=== PATIENT | male | born 1950 | race Caucasian/White ===

== ENCOUNTER 2017-01-11 06:27 | Inpatient (IN) | payer MEDICARE ==
[2017-01-04 09:21] VITALS: BMI 30.9
[2017-01-11] MEDS ORDERED: ceFAZolin IV 1 gm in Dextrose 0 GM/0 ML BAG IVPB ONE (07:40)
[2017-01-11] MEDS ORDERED: Phenylephrine 10 mg/ml Inj ONE (07:48)
[2017-01-11] MEDS ORDERED: ePHEDrine 50 mg/ml Inj ONE (07:48)
[2017-01-11] MEDS ORDERED: Propofol 10 mg/ml Inj (20 ML) ONE (07:48)
[2017-01-11] MEDS ORDERED: Rocuronium 10 mg/ml (5 ml) ONE (07:48)
[2017-01-11] MEDS ORDERED: Lidocaine Hydrochloride 10 ML INJ ONE (07:48)
[2017-01-11] MEDS ORDERED: Midazolam 2 MG/2 ML VIAL ONE (07:48)
[2017-01-11] MEDS ORDERED: ceFAZolin IV 2 gm in Dextrose 2 GM/50 ML BAG IVPB ONE (07:49)
[2017-01-11] MEDS ORDERED: Lactated Ringer's 1,000 ML IV ONE ×4 (08:00→14:00)
[2017-01-11] MEDS: Bupivacaine HCl 0.25% PF (10 ml) Inj ONE ×2 (08:20→08:27)
--- NOTE | 2017-01-11 09:53 | PCM.SURG1 ---
Surgeon's Initial Post Op Note - Surgeon's Notes Surgeon: Laura Ralph Real Estate Agent: Solange Alcocer Type of Anesthesia: General Endo Pre-Operative Diagnosis: Prostate cancer Operative Findings: same Post-Operative Diagnosis: same Operation Performed: Robot assisted Laparoscopic prostatectomy. Lysis of adhesions. Bilat Pelvic Lymphadencetomy Specimen/Specimens Removed: Prostate. Pelvic lymph nodes Estimated Blood Loss: EBL {In ML}: 100 Blood Products Given: N/A Drains Used: Mark Mccall Post-Op Condition: Good Date of Surgery/Procedure: 01/11/17 Time of Surgery/Procedure: 09:53
[2017-01-11] MEDS ORDERED: Morphine 4 MG/ML VIAL ONE (09:58)
[2017-01-11] MEDS ORDERED: Potassium Ch 20mEq in D5-1/2NS 1,000 ML IV SCH (10:00)
[2017-01-11] MEDS: HYDROmorphone 0.5 mg/0.5 ml ISec IVP PRN ×4 (10:35→12:37)
[2017-01-11] MEDS ORDERED: Oxycodone/Acetaminophen 5/325 mg Tab PO PRN (11:24)
[2017-01-11] MEDS: cefTRIAXone IV 1 gm in Dextros 50 ML IVPB SCH (11:30)
--- NOTE | 2017-01-11 15:11 | OP ---
PROCEDURE DATE: 01/11/2017 PREOPERATIVE DIAGNOSIS: [facility] 8 extensive localized prostate cancer. POSTOPERATIVE DIAGNOSES: Extensive adhesions as well as localized prostate cancer as mentioned above. PROCEDURES PERFORMED: Extensive lysis of adhesions secondary to previous multiple surgeries, robotic-assisted radical prostatectomy, and bilateral pelvic lymph node dissection. Modifier 22 due to taking more than half an hour extra for this case due to extensive adhesions. SURGEON: Rosa Ralph MD GREEN TIRE INSPECTOR: Reid Alcocer MD ESTIMATED BLOOD LOSS: 100 mL. PREOPERATIVE ANTIBIOTIC: Ancef. COMPLICATIONS: None. DRAINS: MALCOM and Thomas. DESCRIPTION OF PROCEDURE: The patient was taken to the OR, placed in supine position. After anesthetic and preop antibiotics were given, the patient was placed in modified lithotomy position, all the pressure points were padded, and then the patient was prepped and draped in the usual manner. Then, an incision was made above the umbilicus where the previous scar was, but before putting a port through that side, we went to the right side, the most lateral robotic port, we placed that in first and a Veress needle there to stay away from the adhesions. Then, insufflation was done and then an 8 mm robotic port was placed, and under direct vision with the camera, adhesions were seen anterior to the abdominal wall and those were taken down with sharp dissection athermally. Once those were taken down, then a space was created to place additional robotic port and the camera port and the food service assistant port. Once that was done, then the patient was placed in Trendelenburg, the robot was docked, and then additional lysis of adhesions was done with the robotic instrument and then the retroperitoneal space was entered and the bladder was dropped, and then the prostate was mobilized, and the bladder neck was identified, and then an incision was made at the anterior bladder neck. Then, cystoplasty was performed and bladder neck preservation was done, staying away from the prostate since the patient had significant cancer. Once the posterior bladder was incised, then seminal vesicle and vas were identified, they were lifted and cut. The posterior plane was created. Staying away from the capsular area, an avascular plane was created further laterally and toward the apex of the prostate and then laterally, the nerve was dropped and then pedicle was taken with clips on each side, then the apex was freed, and then anteriorly it was freed. Dorsal vein was taken, and then anterior urethra was cut, then stay suture and anastomotic stitch was placed and posterior urethra was cut. Then, prostate was brought to the side and then anastomosis was completed after checking for bleeding and there was none seen. With 0 Vicryl and finishing at 12 o'clock. Then, bilateral pelvic lymph node dissection was performed using obturator and iliac as a landmark and then, the Surgicel was placed on the fossa as well as on the neurovascular bundle area. Then, the bladder was filled and irrigated, there were no leaks seen. Then, the specimen was placed in the bag, and robot was undocked, each port was again looked directly as we exited. Then, bowel was re-checked. There was no dilation seen. After the ports were removed, the specimen was removed through the midline after making it a little larger. Then, the fascia was closed with 0 Vicryl, skin was re-approximated with staple, and drain was placed and secured. The patient was awakened and transferred to the recovery room in stable condition. Lidocaine was given at the wound site. Rosa Ralph MD
[2017-01-11] MEDS ORDERED: Sodium Chloride 0.9% 1,000 ML IV SCH (15:45)
[2017-01-11 16:12] LABS: HEMATOCRIT 38.6 % (35.0-51.0); MEAN CELL VOLUME 91.9 fL (80.0-94.0); MEAN CORPUSCULAR HEMOGLOBIN 28.9 pg (27.0-31.0); MEAN CORPUSCULAR HGB CONC 31.4 g/dL (33.0-37.0)
[2017-01-11 16:26] LABS: WHITE BLOOD COUNT 15.7 K/uL (4.8-10.8)
[2017-01-11 16:30] LABS: BLOOD UREA NITROGEN 11 mg/dL (9-20); CALCIUM 7.3 mg/dl (8.6-10.4); CARBON DIOXIDE 24 mmol/L (22-30); CHLORIDE 102 mmol/L (98-107); GFR AFRICAN-AMERICAN > 60; GLUCOSE,RANDOM 185 mg/dL (75-110); POTASSIUM 4.6 mmol/L (3.6-5.2); SODIUM 133 mmol/L (132-148)
[2017-01-11] MEDS ORDERED: Sodium Chloride 0.9% 1,000 ML IV ONE ×2 (16:30)
[2017-01-11] MEDS: Dextrose 5%/0.45% NS 1,000 ML IV SCH (19:00)
[2017-01-11 19:46] VITALS: RESP 20
[2017-01-11] MEDS: (Novolog) Insulin Aspart, Recombinant 100 u/ml 10 ml vial SC SCH (21:58)
[2017-01-12] MEDS: Dextrose 5%/0.45% NS 1,000 ML IV SCH ×5 (00:30→21:41)
--- NOTE | 2017-01-12 08:06 | PCM.URO ---
Urology Progress Note - General General: No Complaints, Tolerating Diet - Subjective Abdominal Pain: Yes (mild) Flank Pain: No Nausea: No Voiding Well: No (catheter in place) Hematuria: No Dsypnea: No Chest Pain: No Fever & Chills: No - Objective Lab Results Last 24 Hours: Laboratory Results - last 24 hr 01/11/17 01/11/17 01/11/17 07:20 12:22 16:07 WBC 15.7 H D RBC 4.20 L Hgb 12.1 D Hct 38.6 MCV 91.9 MCH 28.9 MCHC 31.4 L RDW 14.0 Plt Count 228 MPV 9.0 Sodium Potassium Chloride Carbon Dioxide Anion Gap BUN Creatinine Est GFR ( Amer) Est GFR (Non-Af Amer) POC Glucose (mg/dL) 191 H Random Glucose Calcium Blood Type O POSITIVE Antibody Screen Negative 01/11/17 01/11/17 01/12/17 16:07 21:33 06:33 WBC RBC Hgb Hct MCV MCH MCHC RDW Plt Count MPV Sodium 133 Potassium 4.6 Chloride 102 Carbon Dioxide 24 Anion Gap 13 BUN 11 Creatinine 1.1 Est GFR ( Amer) > 60 Est GFR (Non-Af Amer) > 60 POC Glucose (mg/dL) 185 H 205 H Random Glucose 185 H Calcium 7.3 L Blood Type Antibody Screen Intake & Output: Intake & Output 01/11/17 01/12/17 01/12/17 18:59 06:59 18:59 Intake Total 815 Output Total 825 665 Balance -825 150 Intake: Intake, IV Amount 575 Left Wrist 575 Oral 240 Output: Drainage 240 115 Left Abdomen 115 Urine 585 550 Urethral (Thomas) 550 Other: Voiding Method Indwelling Catheter Vital Signs: Vital Signs - 24 hr 01/11/17 01/11/17 01/11/17 10:04 10:15 10:30 Temperature 97.8 F Pulse Rate 89 82 68 Respiratory 10 L 12 15 Rate Blood Pressure 154/85 H 145/81 150/78 O2 Sat by Pulse 99 100 100 Oximetry 01/11/17 01/11/17 01/11/17 10:45 11:00 11:30 Temperature Pulse Rate 75 79 80 Respiratory 16 16 15 Rate Blood Pressure 144/79 143/82 126/83 O2 Sat by Pulse 100 100 100 Oximetry 01/11/17 01/11/17 01/11/17 11:45 12:00 12:15 Temperature Pulse Rate 82 95 H 98 H Respiratory 15 17 16 Rate Blood Pressure 121/67 107/73 109/76 O2 Sat by Pulse 100 100 100 Oximetry 01/11/17 01/11/17 01/11/17 12:30 12:45 13:00 Temperature Pulse Rate 104 H 112 H 94 H Respiratory 15 17 17 Rate Blood Pressure 106/73 96/66 L 97/67 L O2 Sat by Pulse 100 100 100 Oximetry 01/11/17 01/11/17 01/11/17 13:30 14:00 14:30 Temperature Pulse Rate 95 H 90 90 Respiratory 18 19 18 Rate Blood Pressure 95/51 L 97/65 L 99/57 L O2 Sat by Pulse 100 100 100 Oximetry 01/11/17 01/11/17 01/11/17 15:00 15:30 16:00 Temperature 98.7 F Pulse Rate 92 H 97 H 92 H Respiratory 16 11 L 18 Rate Blood Pressure 98/61 L 102/70 99/57 L O2 Sat by Pulse 100 100 100 Oximetry 01/11/17 01/11/17 01/11/17 16:30 17:00 17:30 Temperature Pulse Rate 90 84 88 Respiratory 15 15 17 Rate Blood Pressure 101/65 97/60 L 103/58 L O2 Sat by Pulse 100 100 100 Oximetry 01/11/17 01/11/17 01/11/17 18:00 19:44 23:40 Temperature 97.8 F 98.3 F 98.0 F Pulse Rate 90 89 76 Respiratory 20 20 20 Rate Blood Pressure 105/59 L 96/66 L 95/60 L O2 Sat by Pulse 100 96 98 Oximetry - Physical Exam Abdominal Exam: Soft, Non-Tender, Non-Distended Bowel Sounds: Normal Back: No CVA Tenderness Genitalia: Without Inflammation Urine Color: Clear, Yellow Extremities: Normal: Bilateral - Male Phallus: Normal - Plan Advance Diet: Yes Wound Care: Yes Catheter Care: Yes Ambulation - Out of Bed: Yes Intake & Output: Yes See Orders: Yes Additional Information: Imp: progressing well, POD#1. Discussed w pt and nursing staff - Date & Time of Note Date: 01/12/17 Time: 08:06
[2017-01-12 08:23] LABS: HEMATOCRIT 28.2 % (35.0-51.0); MEAN CELL VOLUME 90.9 fL (80.0-94.0); MEAN PLATELET VOLUME 9.4 fL (7.2-11.7); RED CELL DISTRIBUTION WIDTH 13.4 % (11.5-14.5)
[2017-01-12] MEDS: (Novolog) Insulin Aspart, Recombinant 100 u/ml 10 ml vial SC SCH ×4 (08:34→21:41)
[2017-01-12 08:45] LABS: WHITE BLOOD COUNT 7.7 K/uL (4.8-10.8)
[2017-01-12 08:48] LABS: BLOOD UREA NITROGEN 16 mg/dL (9-20); CALCIUM 6.9 mg/dl (8.6-10.4); CARBON DIOXIDE 24 mmol/L (22-30); CHLORIDE 101 mmol/L (98-107); GFR AFRICAN-AMERICAN > 60; GLUCOSE,RANDOM 169 mg/dL (75-110); POTASSIUM 3.6 mmol/L (3.6-5.2); SODIUM 132 mmol/L (132-148)
[2017-01-12] MEDS ORDERED: Enoxaparin 40 mg Syringe SC SCH (10:00)
[2017-01-12] MEDS: cefTRIAXone IV 1 gm in Dextros 50 ML IVPB SCH (10:34)
[2017-01-12] MEDS: Pantoprazole 40 mg EC Tab PO SCH (10:34)
[2017-01-12] MEDS: Oxycodone/Acetaminophen 5/325 mg Tab PO PRN (10:41)
[2017-01-12 12:42] LABS: HEMATOCRIT 29.9 % (35.0-51.0); MEAN CELL VOLUME 91.2 fL (80.0-94.0); MEAN CORPUSCULAR HEMOGLOBIN 30.2 pg (27.0-31.0); MEAN CORPUSCULAR HGB CONC 33.1 g/dL (33.0-37.0); MEAN PLATELET VOLUME 9.5 fL (7.2-11.7); RED CELL DISTRIBUTION WIDTH 13.7 % (11.5-14.5); WHITE BLOOD COUNT 8.4 K/uL (4.8-10.8)
[2017-01-12] MEDS: Simethicone 80 mg Chewtab PO PRN (19:51)
[2017-01-13] MEDS: Dextrose 5%/0.45% NS 1,000 ML IV SCH ×2 (04:30→10:23)
[2017-01-13 07:18] LABS: BLOOD UREA NITROGEN 11 mg/dL (9-20); CALCIUM 7.4 mg/dl (8.6-10.4); CARBON DIOXIDE 25 mmol/L (22-30); CHLORIDE 103 mmol/L (98-107); GFR AFRICAN-AMERICAN > 60; GLUCOSE,RANDOM 168 mg/dL (75-110); POTASSIUM 3.7 mmol/L (3.6-5.2); SODIUM 135 mmol/L (132-148)
[2017-01-13 07:40] LABS: MEAN CELL VOLUME 91.2 fL (80.0-94.0); MEAN CORPUSCULAR HEMOGLOBIN 29.8 pg (27.0-31.0); MEAN CORPUSCULAR HGB CONC 32.7 g/dL (33.0-37.0); MEAN PLATELET VOLUME 9.6 fL (7.2-11.7); RED CELL DISTRIBUTION WIDTH 13.7 % (11.5-14.5); WHITE BLOOD COUNT 9.1 K/uL (4.8-10.8)
[2017-01-13] MEDS: (Novolog) Insulin Aspart, Recombinant 100 u/ml 10 ml vial SC SCH ×3 (08:58→16:30)
--- NOTE | 2017-01-13 09:09 | CP.PCM.HP ---
History of Present Illness - History of Present Illness History of Present Illness: CC : post-op medical care HPI : 66 y/o [place] man admitted post op s/p Total prostatectomy. Pt is a known T2dm, HTN, Prostate ca,Lipid disorder. Called to manage pt from mediacal/ cardiac standpoint. Present on Admission - Present on Admission Any Indicators Present on Admission: Yes History of Uncontrolled Diabetes: Yes Review of Systems - Constitutional Constitutional: Snoring, Sleep Apnea - EENT Eyes: Blurred Vision Nose/Mouth/Throat: absent: Nasal Discharge, Neck Mass - Cardiovascular Cardiovascular: absent: Chest Pain, Dyspnea on Exertion, Pedal Edema - Respiratory Respiratory: absent: Dyspnea on Exertion - Gastrointestinal Gastrointestinal: absent: Abdominal Pain, Dysphagia - Genitourinary Genitourinary: Change in Urinary Stream, Difficulty Urinating, Urinary Incontinence - Musculoskeletal Musculoskeletal: Arthralgias. absent: Myalgias - Neurological Neurological: absent: Focal Weakness Past Patient History - Past Medical History & Family History Past Medical History?: Yes - Past Social History Smoking Status: Former Smoker - CARDIAC Hx Cardiac Disorders: Yes Hx Hypercholesterolemia: Yes Hx Hypertension: Yes - PULMONARY Hx Respiratory Disorders: Yes Hx Asthma: Yes Hx Sleep Apnea: Yes (POS SLEEP STUDY, NO C PAP) - NEUROLOGICAL Hx Neurological Disorder: No - HEENT Hx HEENT Problems: Yes Other/Comment: wear reading eyeglasses - RENAL Hx Chronic Kidney Disease: No - ENDOCRINE/METABOLIC Hx Endocrine Disorders: Yes Hx Diabetes Mellitus Type 2: Yes (10 years) - HEMATOLOGICAL/ONCOLOGICAL Hx Blood Disorders: Yes Hx Cancer: Yes (colorectal ca 2 years agolast chemo ) Hx Chemotherapy: Yes Hx Hepatitis B: Yes - INTEGUMENTARY Hx Dermatological Problems: No - MUSCULOSKELETAL/RHEUMATOLOGICAL Hx Musculoskeletal Disorders: Yes Hx Falls: No Other/Comment: left heel spur (hx heel surgery) - GASTROINTESTINAL Hx Gastrointestinal Disorders: Yes Hx Bowel Surgery: Yes (SIGMOID RESECTION/CYSTO PROSTATE BIOPSY) Hx Gastroesophageal Reflux: Yes Other/Comment: sigmoid cancer - GENITOURINARY/GYNECOLOGICAL Hx Genitourinary Disorders: Yes Hx Prostate Cancer: Yes Other/Comment: FREQUENCY/DRIBBLING - PSYCHIATRIC Hx Psychophysiologic Disorder: No Hx Substance Use: No - SURGICAL HISTORY Hx Surgeries: Yes Hx Orthopedic Surgery: Yes (LEFT HEEL SPUR) Other/Comment: colon surgery - ANESTHESIA Hx Anesthesia: Yes Hx Anesthesia Reactions: No Hx Malignant Hyperthermia: No Has any member of the family had a problem w/ anesthesia?: No Meds Allergies/Adverse Reactions: Allergies Allergy/AdvReac Type Severity Reaction Status Date / Time No Known Allergies Allergy Verified 01/04/17 09:24 Physical Exam - Constitutional Appears: Non-toxic - Head Exam Head Exam: NORMAL INSPECTION - Eye Exam Eye Exam: absent: Scleral icterus Pupil Exam: NORMAL ACCOMODATION - ENT Exam ENT Exam: Mucous Membranes Moist - Neck Exam Neck exam: Positive for: Full Rom. Negative for: Lymphadenopathy - Respiratory Exam Respiratory Exam: NORMAL BREATHING PATTERN - Cardiovascular Exam Cardiovascular Exam: REGULAR RHYTHM - GI/Abdominal Exam GI & Abdominal Exam: Tenderness. absent: Soft - Extremities Exam Extremities exam: Negative for: calf tenderness, pedal edema Results - Vital Signs Recent Vital Signs: Last Vital Signs Temp 97.9 F 01/13/17 07:25 Pulse 104 H 01/13/17 07:25 Resp 20 01/13/17 07:25 BP 120/71 01/13/17 07:25 Pulse Ox 100 01/13/17 07:25 - Labs Result Diagrams: 01/13/17 06:42 01/13/17 06:42 Labs: Laboratory Results - last 24 hr 01/12/17 01/12/17 01/12/17 12:12 12:34 17:08 WBC 8.4 RBC 3.27 L Hgb 9.9 L Hct 29.9 L MCV 91.2 MCH 30.2 MCHC 33.1 RDW 13.7 Plt Count 169 MPV 9.5 Sodium Potassium Chloride Carbon Dioxide Anion Gap BUN Creatinine Est GFR ( Amer) Est GFR (Non-Af Amer) POC Glucose (mg/dL) 202 H 174 H Random Glucose Calcium 01/12/17 01/13/17 01/13/17 21:16 06:26 06:42 WBC 9.1 RBC 2.74 L Hgb 8.2 L Hct 25.0 L MCV 91.2 MCH 29.8 MCHC 32.7 L RDW 13.7 Plt Count 144 MPV 9.6 Sodium Potassium Chloride Carbon Dioxide Anion Gap BUN Creatinine Est GFR ( Amer) Est GFR (Non-Af Amer) POC Glucose (mg/dL) 225 H 196 H Random Glucose Calcium 01/13/17 06:42 WBC RBC Hgb Hct MCV MCH MCHC RDW Plt Count MPV Sodium 135 Potassium 3.7 Chloride 103 Carbon Dioxide 25 Anion Gap 11 BUN 11 Creatinine 1.1 Est GFR ( Amer) > 60 Est GFR (Non-Af Amer) > 60 POC Glucose (mg/dL) Random Glucose 168 H Calcium 7.4 L Assessment & Plan - Assessment and Plan (Free Text) Assessment: Prostate Ca s/p Total prostatectomy T2dm HTN Plan: Control bp Control BS DVT prophylaxis
--- NOTE | 2017-01-13 09:20 | CP.PCM.PN ---
Subjective - Date & Time of Evaluation Date of Evaluation: 01/12/17 Time of Evaluation: 08:10 - Subjective Subjective: no chest pain no sob good urine output Vitals stable Objective - Vital Signs/Intake and Output Vital Signs (last 24 hours): Temp Pulse Resp BP Pulse Ox 97.9 F 104 H 20 120/71 100 01/13/17 07:25 01/13/17 07:25 01/13/17 07:25 01/13/17 07:25 01/13/17 07:25 Intake and Output: 01/13/17 01/13/17 06:59 18:59 Intake Total 2400 Output Total 3000 Balance -600 - Medications Medications: Current Medications Docusate Sodium (Colace) 100 mg PO TID [facility] Last Admin: 01/12/17 18:09 Dose: 100 mg Enoxaparin Sodium (Lovenox) 40 mg SC DAILY [facility] Last Admin: 01/12/17 10:33 Dose: 40 mg Ceftriaxone Sodium (Rocephin Iv 1 Gm Duplex) 50 mls @ 100 mls/hr IVPB DAILY [facility] Last Admin: 01/12/17 10:34 Dose: 100 mls/hr Dextrose/Sodium Chloride (Dextrose 5%/0.45% Ns 1000 Ml) 1,000 mls @ 150 mls/hr IV .Q6H40M [facility] Last Admin: 01/13/17 04:30 Dose: 150 mls/hr Insulin Aspart (Novolog) 0 unit SC ACHS [facility] PRN Reason: Protocol Last Admin: 01/13/17 08:58 Dose: 1 unit Losartan Potassium (Cozaar) 100 mg PO DAILY [facility] Last Admin: 01/12/17 10:34 Dose: 100 mg Metformin HCl (Glucophage) 500 mg PO BIDCC [facility] Last Admin: 01/13/17 08:58 Dose: 500 mg Oxycodone/Acetaminophen (Percocet 5/325 Mg Tab) 1 tab PO Q4H PRN PRN Reason: Pain, Mild (1-3) Stop: 01/14/17 11:25 Oxycodone/Acetaminophen (Percocet 5/325 Mg Tab) 2 tab PO Q4H PRN PRN Reason: Pain, moderate (4-7) Stop: 01/14/17 11:27 Last Admin: 01/12/17 10:41 Dose: 2 tab Pantoprazole Sodium (Protonix Ec Tab) 40 mg PO DAILY [facility] Last Admin: 01/12/17 10:34 Dose: 40 mg Rosuvastatin Calcium (Crestor) 10 mg PO HS [facility] Last Admin: 01/12/17 21:41 Dose: 10 mg Simethicone (Mylicon Chew Tab) 80 mg PO Q6 PRN PRN Reason: GI distress Stop: 01/15/17 19:32 Last Admin: 01/12/17 19:51 Dose: 80 mg Sitagliptin Phosphate (Januvia) 100 mg PO DAILY [facility] Last Admin: 01/12/17 10:34 Dose: 100 mg - Labs Labs: 01/13/17 06:42 01/13/17 06:42 - Constitutional Appears: Non-toxic - Head Exam Head Exam: NORMOCEPHALIC - Eye Exam Eye Exam: absent: Scleral icterus - Neck Exam Neck Exam: Full ROM - Respiratory Exam Respiratory Exam: Clear to Ausculation Bilateral - Cardiovascular Exam Cardiovascular Exam: REGULAR RHYTHM - GI/Abdominal Exam GI & Abdominal Exam: Soft. absent: Tenderness - Extremities Exam Extremities Exam: Calf Tenderness. absent: Pedal Edema - Neurological Exam Neurological Exam: Alert, Oriented x3 Assessment and Plan - Assessment and Plan (Free Text) Assessment: s/p Total prostatectomy Prostate ca T2dm HTN Lipid disorder Plan: Fluids Pain meds prn Cont home meds
--- NOTE | 2017-01-13 09:25 | CP.PCM.PN ---
Subjective - Date & Time of Evaluation Date of Evaluation: 01/12/17 Time of Evaluation: 08:25 - Subjective Subjective: improving NAD BP stable. Afebrile. Good urine output Objective - Vital Signs/Intake and Output Vital Signs (last 24 hours): Temp Pulse Resp BP Pulse Ox 97.9 F 104 H 20 120/71 100 01/13/17 07:25 01/13/17 07:25 01/13/17 07:25 01/13/17 07:25 01/13/17 07:25 Intake and Output: 01/13/17 01/13/17 06:59 18:59 Intake Total 2400 Output Total 3000 Balance -600 - Medications Medications: Current Medications Docusate Sodium (Colace) 100 mg PO TID [facility] Last Admin: 01/12/17 18:09 Dose: 100 mg Enoxaparin Sodium (Lovenox) 40 mg SC DAILY [facility] Last Admin: 01/12/17 10:33 Dose: 40 mg Ceftriaxone Sodium (Rocephin Iv 1 Gm Duplex) 50 mls @ 100 mls/hr IVPB DAILY [facility] Last Admin: 01/12/17 10:34 Dose: 100 mls/hr Dextrose/Sodium Chloride (Dextrose 5%/0.45% Ns 1000 Ml) 1,000 mls @ 150 mls/hr IV .Q6H40M [facility] Last Admin: 01/13/17 04:30 Dose: 150 mls/hr Insulin Aspart (Novolog) 0 unit SC ACHS [facility] PRN Reason: Protocol Last Admin: 01/13/17 08:58 Dose: 1 unit Losartan Potassium (Cozaar) 100 mg PO DAILY [facility] Last Admin: 01/12/17 10:34 Dose: 100 mg Metformin HCl (Glucophage) 500 mg PO BIDCC [facility] Last Admin: 01/13/17 08:58 Dose: 500 mg Oxycodone/Acetaminophen (Percocet 5/325 Mg Tab) 1 tab PO Q4H PRN PRN Reason: Pain, Mild (1-3) Stop: 01/14/17 11:25 Oxycodone/Acetaminophen (Percocet 5/325 Mg Tab) 2 tab PO Q4H PRN PRN Reason: Pain, moderate (4-7) Stop: 01/14/17 11:27 Last Admin: 01/12/17 10:41 Dose: 2 tab Pantoprazole Sodium (Protonix Ec Tab) 40 mg PO DAILY [facility] Last Admin: 01/12/17 10:34 Dose: 40 mg Rosuvastatin Calcium (Crestor) 10 mg PO HS [facility] Last Admin: 01/12/17 21:41 Dose: 10 mg Simethicone (Mylicon Chew Tab) 80 mg PO Q6 PRN PRN Reason: GI distress Stop: 01/15/17 19:32 Last Admin: 01/12/17 19:51 Dose: 80 mg Sitagliptin Phosphate (Januvia) 100 mg PO DAILY [facility] Last Admin: 01/12/17 10:34 Dose: 100 mg - Labs Labs: 01/13/17 06:42 01/13/17 06:42 - Constitutional Appears: Non-toxic - Head Exam Head Exam: NORMAL INSPECTION - Eye Exam Eye Exam: absent: Scleral icterus - ENT Exam ENT Exam: Mucous Membranes Moist - Neck Exam Neck Exam: Full ROM - Respiratory Exam Respiratory Exam: Clear to Ausculation Bilateral - Cardiovascular Exam Cardiovascular Exam: REGULAR RHYTHM - GI/Abdominal Exam GI & Abdominal Exam: Soft. absent: Tenderness - Extremities Exam Extremities Exam: absent: Calf Tenderness, Pedal Edema - Neurological Exam Neurological Exam: Alert, Oriented x3 Assessment and Plan - Assessment and Plan (Free Text) Assessment: s/p total prostatectomy HTN T2dm Lipid disorder Plan: Cont post-op care Cont meds Accucheck qid w/ coverage
--- NOTE | 2017-01-13 09:32 | CP.PCM.PN ---
Objective - Vital Signs/Intake and Output Vital Signs (last 24 hours): Temp Pulse Resp BP Pulse Ox 97.9 F 104 H 20 120/71 100 01/13/17 07:25 01/13/17 07:25 01/13/17 07:25 01/13/17 07:25 01/13/17 07:25 Intake and Output: 01/13/17 01/13/17 06:59 18:59 Intake Total 2400 Output Total 3000 Balance -600 - Medications Medications: Current Medications Docusate Sodium (Colace) 100 mg PO TID [facility] Last Admin: 01/12/17 18:09 Dose: 100 mg Enoxaparin Sodium (Lovenox) 40 mg SC DAILY [facility] Last Admin: 01/12/17 10:33 Dose: 40 mg Ceftriaxone Sodium (Rocephin Iv 1 Gm Duplex) 50 mls @ 100 mls/hr IVPB DAILY [facility] Last Admin: 01/12/17 10:34 Dose: 100 mls/hr Dextrose/Sodium Chloride (Dextrose 5%/0.45% Ns 1000 Ml) 1,000 mls @ 150 mls/hr IV .Q6H40M [facility] Last Admin: 01/13/17 04:30 Dose: 150 mls/hr Insulin Aspart (Novolog) 0 unit SC ACHS [facility] PRN Reason: Protocol Last Admin: 01/13/17 08:58 Dose: 1 unit Losartan Potassium (Cozaar) 100 mg PO DAILY [facility] Last Admin: 01/12/17 10:34 Dose: 100 mg Metformin HCl (Glucophage) 500 mg PO BIDCC [facility] Last Admin: 01/13/17 08:58 Dose: 500 mg Oxycodone/Acetaminophen (Percocet 5/325 Mg Tab) 1 tab PO Q4H PRN PRN Reason: Pain, Mild (1-3) Stop: 01/14/17 11:25 Oxycodone/Acetaminophen (Percocet 5/325 Mg Tab) 2 tab PO Q4H PRN PRN Reason: Pain, moderate (4-7) Stop: 01/14/17 11:27 Last Admin: 01/12/17 10:41 Dose: 2 tab Pantoprazole Sodium (Protonix Ec Tab) 40 mg PO DAILY [facility] Last Admin: 01/12/17 10:34 Dose: 40 mg Rosuvastatin Calcium (Crestor) 10 mg PO HS [facility] Last Admin: 01/12/17 21:41 Dose: 10 mg Simethicone (Mylicon Chew Tab) 80 mg PO Q6 PRN PRN Reason: GI distress Stop: 01/15/17 19:32 Last Admin: 01/12/17 19:51 Dose: 80 mg Sitagliptin Phosphate (Januvia) 100 mg PO DAILY [facility] Last Admin: 01/12/17 10:34 Dose: 100 mg - Labs Labs: 01/13/17 06:42 01/13/17 06:42
[2017-01-13] MEDS: Simethicone 80 mg Chewtab PO PRN (10:12)
[2017-01-13] MEDS: cefTRIAXone IV 1 gm in Dextros 50 ML IVPB SCH (10:14)
[2017-01-13] MEDS: Pantoprazole 40 mg EC Tab PO SCH (10:14)
[2017-01-13] MEDS: Oxycodone/Acetaminophen 5/325 mg Tab PO PRN (10:15)
[2017-01-13] MEDS ORDERED: Magnesium Hydroxide Susp 30 ml UD PO ONE (12:00)
[2017-01-13 17:25] VITALS: BP 118/72; PULSE 102; TEMP 98.6; O2SAT 96
--- NOTE | 2017-01-14 12:21 | PCM.URO ---
Urology Progress Note - General General: No Complaints, Tolerating Diet - Subjective Abdominal Pain: No (feeling better re gas pain) Flank Pain: No Nausea: No Vomiting: No Hematuria: No Dsypnea: No Chest Pain: No Fever & Chills: No - Objective Lab Studies: Reviewed Lab Results Last 24 Hours: Laboratory Results - last 24 hr 01/13/17 01/13/17 12:12 16:56 POC Glucose (mg/dL) 190 H 148 H Intake & Output: Intake & Output 01/13/17 01/14/17 01/14/17 18:59 06:59 18:59 Intake Total 1800 Output Total 1300 Balance 500 Intake: Intake, IV Amount 1200 Left Wrist 1200 Oral 600 Output: Urine 1300 Urethral (Thomas) 1300 Other: # Bowel Movements 0 Vital Signs: Vital Signs - 24 hr 01/13/17 16:00 Temperature 98.6 F Pulse Rate 102 H Respiratory 20 Rate Blood Pressure 118/72 O2 Sat by Pulse 96 Oximetry - Physical Exam Abdominal Exam: Soft, Non-Tender, Non-Distended Bowel Sounds: Normal Wound: Clean, Healing Well Back: No CVA Tenderness Urinary Catheter Draining Well: Yes Urine Color: Clear, Yellow - Male Phallus: Normal Scrotum: Normal - Plan Advance Diet: Yes Discontinue Drain: Yes Wound Care: Yes Catheter Care: Yes Ambulation - Out of Bed: Yes Discontinue Intravenous Fluids: Yes See Orders: Yes Additional Information: Imp: progressing well. - Date & Time of Note Date: 01/13/17 Time: 12:00
== END 2017-01-13 18:22 | disposition home or self-care (01) | DRG 707 ==
LOC: C.9S 06:27 → C.6T 19:18
PROVIDERS: ADMIT Urology; ATTEND Urology
PROC: 0VT04ZZ Resection of Prostate, Percutaneous Endoscopic Approach (ICD-10-PCS; principal; 2017-01-11 07:45)
DX: C61 Malignant neoplasm of prostate (principal); C18.7 Malignant neoplasm of sigmoid colon; B19.10 Unspecified viral hepatitis B without hepatic coma; I10 Essential (primary) hypertension; E11.9 Type 2 diabetes mellitus without complications; K21.9 Gastro-esophageal reflux disease without esophagitis; E78.00 Pure hypercholesterolemia, unspecified; J45.909 Unspecified asthma, uncomplicated; Z87.891 Personal history of nicotine dependence; M77.32 Calcaneal spur, left foot

== ENCOUNTER 2017-03-08 07:43 | Day surgery (SDC) | payer MEDICARE ==
[2017-01-04 09:21] VITALS: BMI 30.9
[2017-03-08] MEDS ORDERED: Lactated Ringer's 1,000 ML IV ONE ×2 (09:20)
[2017-03-08] MEDS ORDERED: Propofol 10 mg/ml Inj (20 ML) ONE (09:23)
[2017-03-08] MEDS ORDERED: Midazolam 2 MG/2 ML VIAL ONE (09:23)
[2017-03-08] MEDS ORDERED: Lactated Ringer's 1,000 ML IV PRN (10:05)
[2017-03-08] MEDS ORDERED: Lidocaine 2% Jelly (Uro-Jet) ONE (10:13)
--- NOTE | 2017-03-08 10:44 | PCM.SURG1 ---
Surgeon's Initial Post Op Note - Surgeon's Notes Surgeon: Solange Alcocer Director Of Dietary: none Type of Anesthesia: General LMA Pre-Operative Diagnosis: Poor stream, frequency, Hx of robotic prostatectomy for prostate cancer Operative Findings: same, retained sutures. abnormal BN mucosa Post-Operative Diagnosis: same Operation Performed: cystoscopy, BN biopsy, removal of foreign body (suture) Estimated Blood Loss: EBL {In ML}: 0 Blood Products Given: N/A Post-Op Condition: Good Date of Surgery/Procedure: 03/08/17 Time of Surgery/Procedure: 10:15
[2017-03-08 11:13] VITALS: RESP 18
[2017-03-08 12:31] VITALS: BP 136/81; PULSE 87; TEMP 97.7; O2SAT 97
--- NOTE | 2017-03-09 15:01 | OP ---
PROCEDURE DATE: 03/08/2017 PREOPERATIVE DIAGNOSES: Urinary frequency. Poor urinary stream. History of prostate carcinoma. POSTOPERATIVE DIAGNOSES: Urinary frequency. Poor urinary stream. Inflammation of bladder neck. Abnormal mucosa of the bladder neck and retained suture. PROCEDURES: Cystoscopy. Bladder neck biopsy. Removal of foreign body. SURGEON: Jade Alcocer MD DESCRIPTION OF PROCEDURE: The patient was placed in lithotomy position. The patient received perioperative antibiotics. The genitalia was prepped and draped sterilely. Anesthesia was applied by the anesthesiologist. A 22-[place]ine[place] cystoscope sheath was introduced under direct vision. There was no stricture in the anterior urethra. Procedure was performed under video endoscopic control. The urethra and bladder were inspected. There was no bladder neck contraction. There was abnormal mucosa of the bladder neck. There was some reddened areas. In addition, there were some shaggy inflammatory areas. Ureteral orifice were identified bilaterally, normal. There was mild bladder trabeculation. The residual within the bladder was 50 mL. Urine was sent for bacteriologic examination. There were retained suture loops noted at the bladder neck and urethral anastomosis. The sutures were incised with the urethrotome blade with a 20-Guinean urethrotome. Cystoscope was then reinserted. The sutures were removed. In addition, bladder neck biopsies were performed. There was no bleeding noted. The bladder was reinspected with 70-degree lens to confirm the above findings. The cystoscope sheath removed. An 18-[place] Thomas catheter was inserted. Bladder drainage was clear. Rectal examination was performed. There was no abnormal pelvic mass fixation or induration. The patient tolerated procedure without complication. Jade Alcocer MD
== END 2017-03-08 12:50 | disposition home or self-care (01) ==
LOC: C.SDS 07:43
PROVIDERS: ATTEND Urology
DX: N30.80 Other cystitis without hematuria (principal); R39.14 Feeling of incomplete bladder emptying; R35.0 Frequency of micturition
CPT/HCPCS: 52204; 82948; 87086; 88305; J0696; J7120

== ENCOUNTER 2018-01-03 05:51 | Day surgery (SDC) | payer MEDICARE ==
[2017-12-16 09:10] VITALS: BMI 33.9
[2018-01-03] MEDS ORDERED: cefTRIAXone 1 gm 1 GM/100 ML BAG IVPB ONE (07:14)
[2018-01-03] MEDS ORDERED: Lidocaine 2% Jelly (Uro-Jet) ONE (07:15)
[2018-01-03] MEDS ORDERED: Midazolam 2 MG/2 ML VIAL ONE (07:44)
[2018-01-03] MEDS ORDERED: Propofol 10 mg/ml Inj (20 ML) ONE (07:44)
[2018-01-03] MEDS ORDERED: Iohexol 240 200 ML ONE (07:48)
[2018-01-03] MEDS ORDERED: HYDROmorphone 0.5 mg/0.5 ml ISec IVP PRN (08:20)
--- NOTE | 2018-01-03 10:17 | PCM.SURG1 ---
Surgeon's Initial Post Op Note - Surgeon's Notes Surgeon: Solange Alcocer Shiftman: none Type of Anesthesia: IV Sedation Pre-Operative Diagnosis: urethral stricture Operative Findings: BN contracture Post-Operative Diagnosis: same Operation Performed: RUG, Custo, OIU Specimen/Specimens Removed: urine Estimated Blood Loss: EBL {In ML}: 0 Blood Products Given: N/A Post-Op Condition: Good Date of Surgery/Procedure: 01/03/18 Time of Surgery/Procedure: 08:30
[2018-01-03 13:06] VITALS: RESP 16; TEMP 97.6; O2SAT 99
[2018-01-03 13:08] VITALS: BP 126/79; PULSE 74
--- NOTE | 2018-01-03 17:07 | RAD ---
Date of service: 01/03/2018 PROCEDURE: Intraoperative Fluoroscopy. HISTORY: URINARY RETENTION FINDINGS: Fluoroscopic assistance was provided for urethrography-retrograde. Please refer to the operative report from Dr. ALMAZAN EARL PARK. Total fluoroscopic time (continuous mode) utilized during the procedure 11.5 seconds. Dose report: DLP [id number] (mGy/m2)
--- NOTE | 2018-01-06 09:27 | OP ---
PROCEDURE DATE: 01/03/2018 PREOPERATIVE DIAGNOSES: 1. Poor urinary stream. 2. Bladder outlet obstruction. POSTOPERATIVE DIAGNOSES: 1. Poor urinary stream. 2. Bladder outlet obstruction. 3. Bladder neck contracture. 4. History of prostate carcinoma. 5. History of prostatectomy for prostate carcinoma. PROCEDURES: 1. Retrograde urethrogram. 2. Cystoscopy. 3. Incision of bladder neck contracture. 4. Exam under anesthesia. The patient was in the lateral decubitus position. Iodinated contrast dye was instilled via a 14-Iranian Thomas catheter placed in the distal pendulous urethra. Fluoroscopic views were obtained. The anterior urethra was normal. There was narrowing of the posterior urethra with only a small flow of contrast noted in to the bladder. The patient was placed in lithotomy position. Perioperative antibiotics were administered. Anesthesia was provided by the anesthesiologist. A 20-Iranian urethrotome sheath was introduced under direct vision under video endoscopic control. The bladder neck contracture was identified just proximal to the urinary sphincter. There was a high riding bladder neck which was fibrotic. A 4-Iranian ureteral catheter was inserted through the urethrotome sheath, and through the bladder neck contracture into the bladder. Incision of the bladder neck contracture was performed at the 12 o'clock position. The urethrotome sheath still could not be advanced into the bladder. Further incision was performed eventually. Thereafter, the urethrotome sheath was able to be advanced into the bladder. Urine was sent for bacteriologic examination. The bladder was inspected. There was no bladder tumor. There was no bladder stone. The ureteral orifices were normal in position and shape. The bladder was mildly trabeculated. There was no bladder diverticulum. The bladder neck contracture was reinspected. The bladder neck contracture opened widely and was smooth and was more supple and allowed passage of the 20-Iranian urethrotome sheath in to and out of the bladder easily. The urethrotome sheath was removed. An 18-Iranian Councill catheter was inserted over the remaining ureteral catheter which served as a guide. Bladder drainage was clear. Rectal examination was performed. There was no abnormal pelvic mass, fixation or induration. The prostatic fossa was supple. The patient was returned to the supine position. The patient tolerated the procedure without complication. Postoperative diagnosis is bladder neck contracture. Jade Alcocer MD [facility] # [id number]
== END 2018-01-03 13:01 | disposition home or self-care (01) ==
LOC: C.SDS 05:51
PROVIDERS: ATTEND Urology
DX: N99.114 Postprocedural urethral stricture, male, unspecified (principal); N13.9 Obstructive and reflux uropathy, unspecified; C61 Malignant neoplasm of prostate
CPT/HCPCS: 52276; 82948; 87086; J0696; Q9966